=== PATIENT | male | born 1995 | race African-American/Black ===

== ENCOUNTER 2017-11-04 09:38 | Emergency (ER) | payer MEDICAID ==
[2017-11-04] MEDS ORDERED: KETOROLAC TROMETHAMINE INJ/PF 30 MG/1 ML SDV IV ONE (10:31)
[2017-11-04] MEDS ORDERED: CLONIDINE HCL 0.1 MG TABLET PO ONE (10:31)
[2017-11-04] MEDS ORDERED: NORMAL SALINE 500 ML IV ONE (10:32)
[2017-11-04 10:39] LABS: ABSOLUTE BASOPHILS # (AUTO) 0.1 10^3/uL (0.0-0.2); ABSOLUTE EOSINOPHILS # (AUTO) 0.1 10^3/uL (0.0-0.6); ABSOLUTE LYMPHOCYTES (AUTO) 1.6 10^3/uL (0.5-4.7); ABSOLUTE MONOCYTES (AUTO) 0.3 10^3/uL (0.1-1.4); ABSOLUTE NEUT (AUTO) 4.4 10^3/uL (1.7-8.2); BASOPHILS % (AUTO) 0.8 % (0-2); HEMATOCRIT 46.5 % (37.9-51.0); HEMOGLOBIN 15.7 g/dL (13.5-17.0); LYMPHOCYTES % (AUTO) 24.3 % (13-45); MEAN CORPUSCULAR HEMOGLOBIN 27.8 pg (27.0-33.4); MEAN CORPUSCULAR HGB CONC 33.8 g/dL (32.0-36.0); MEAN CORPUSCULAR VOLUME 82 fl (80-97); MONOCYTES % (AUTO) 5.3 % (3-13); PLATELET COUNT 328 10^3/uL (150-450); RED BLOOD COUNT 5.66 10^6/uL (4.35-5.55); SEGMENTED NEUTROPHILS % (AUTO) 68.6 % (42-78); TOTAL CELLS COUNTED % (AUTO) 100 %; WHITE BLOOD COUNT 6.4 10^3/uL (4.0-10.5)
[2017-11-04 10:56] LABS: ANION GAP 14 (5-19); BLOOD UREA NITROGEN 17 mg/dL (7-20); CALCIUM 10.8 mg/dL (8.4-10.2); CARBON DIOXIDE 25 mmol/L (22-30); CHLORIDE 104 mmol/L (98-107); CREATINE KINASE 155 U/L (55-170); GLUCOSE 90 mg/dL (75-110); POTASSIUM 3.9 mmol/L (3.6-5.0); SODIUM 143.3 mmol/L (137-145)
--- NOTE | 2017-11-04 11:48 | ER Document Report ---
ED General - General Chief Complaint: Chest Pain Stated Complaint: CHEST PAIN Time Seen by Provider: 11/04/17 10:31 TRAVEL OUTSIDE OF THE U.S. IN LAST 30 DAYS: No - HPI Patient complains to provider of: Chest discomfort Notes: Patient coming in for evaluation of chest discomfort. Patient was recently seen at a local urgent care and encouraged him to the ER for further evaluation. Patient appeared To Be Hypertensive. Patient Is on Multiple Psychiatric Medications Including Clonidine. Patient States Somewhat Compliance with His Clonidine However Is Very Clear with His Regimen. Patient Denies Any Fever Chills Nausea Vomiting Diarrhea Denies Any Trauma. - Related Data Allergies/Adverse Reactions: latex [Latex] Allergy (Verified 11/04/17 09:41) Past Medical History - Social History Smoking Status: Never Smoker Chew tobacco use (# tins/day): No Frequency of alcohol use: None Drug Abuse: None Family History: Other - This reports he does not know his family medical history Patient has suicidal ideation: No Patient has homicidal ideation: No - Past Medical History Cardiac Medical History: Reports: Hx Hypercholesterolemia, Hx Hypertension Neurological Medical History: Reports: Hx Seizures Renal/ Medical History: Denies: Hx Peritoneal Dialysis GI Medical History: Reports: Hx Gastroesophageal Reflux Disease Psychiatric Medical History: Reports: Hx Attention Deficit Hyperactivity Disorder, Hx Bipolar Disorder Traumatic Medical History: Reports: Hx Traumatic Brain Injury Past Surgical History: Reports: Hx Neurologic Surgery - RUBBER SPLICER shunt - Immunizations Hx Diphtheria, Pertussis, Tetanus Vaccination: - unknown Review of Systems - Review of Systems Constitutional: No symptoms reported EENT: No symptoms reported Cardiovascular: Chest pain Respiratory: No symptoms reported Gastrointestinal: No symptoms reported Genitourinary: No symptoms reported Male Genitourinary: No symptoms reported Musculoskeletal: No symptoms reported Skin: No symptoms reported Hematologic/Lymphatic: No symptoms reported Neurological/Psychological: No symptoms reported -: Yes All other systems reviewed and negative Physical Exam - Vital signs Vitals: Temp Pulse Resp BP Pulse Ox 98.5 F 94 18 136/96 H 99 11/04/17 10:01 11/04/17 10:01 11/04/17 10:01 11/04/17 10:01 11/04/17 10:01 Interpretation: Normal - General General appearance: Appears well, Alert - HEENT Head: Normocephalic, Atraumatic Eyes: Normal Pupils: PERRL - Respiratory Respiratory status: No respiratory distress Chest status: Nontender Breath sounds: Normal Chest palpation: Normal - Cardiovascular Rhythm: Regular Heart sounds: Normal auscultation Murmur: No - Abdominal Inspection: Normal Distension: No distension Bowel sounds: Normal Tenderness: Nontender Organomegaly: No organomegaly - Back Back: Normal, Nontender - Extremities General upper extremity: Normal inspection, Nontender, Normal color, Normal ROM , Normal temperature General lower extremity: Normal inspection, Nontender, Normal color, Normal ROM , Normal temperature, Normal weight bearing. No: Bhavna's sign - Neurological Neuro grossly intact: Yes Cognition: Normal Orientation: AAOx4 [place] Coma Scale Eye Opening: Spontaneous Max Coma Scale Verbal: Oriented [place] Coma Scale Motor: Obeys Commands [place] Coma Scale Total: 15 Speech: Normal Motor strength normal: LUE, RUE, LLE, RLE Sensory: Normal - Psychological Associated symptoms: Normal affect, Normal mood - Skin Skin Temperature: Warm Skin Moisture: Dry Skin Color: Normal Course - Re-evaluation Re-evalutation: 11/04/17 15:02 The patient has atypical chest pain as the patient's chest pain is not suggestive of pulmonary embolus, cardiac ischemia, aortic dissection, or other serious etiology. Given the extremely low risk of these diagnoses further testing and evaluation for these possibilities does not appear to be indicated at this time. The patient has been instructed to return if the symptoms worsen or change in any way. - Vital Signs Vital signs: Temp Pulse Resp BP Pulse Ox 98.5 F 94 13 135/77 H 100 11/04/17 10:01 11/04/17 10:01 11/04/17 12:01 11/04/17 12:01 11/04/17 12:01 - Laboratory Result Diagrams: 11/04/17 10:25 11/04/17 10:25 Laboratory results interpreted by me: 11/04/17 11/04/17 10:25 10:25 RBC 5.66 H Calcium 10.8 H Discharge - Discharge Clinical Impression: Chest discomfort Hypertension Qualifiers: Hypertension type: unspecified Qualified Code(s): I10 - Essential (primary) hypertension Disposition: HOME, SELF-CARE Instructions: Chest Wall Pain ([facility]), Chest Pain of Unclear Cause ([facility]) Additional Instructions: Your laboratory studies not show any signs of significant pathology your EKG is negative. I would highly recommend she follow-up with your primary care physician for further evaluation of her chest discomfort at this time I do not see cardiac ischemia or signs of significant heart pathology. I recommend taking Motrin and Tylenol for your pain. Return to the ER symptoms worsen. Forms: Elevated Blood Pressure
[2017-11-04 12:05] VITALS: BP 135/77
--- NOTE | 2017-11-04 21:22 | EKG REPORT ---
SEVERITY:- NORMAL ECG - SINUS RHYTHM : Confirmed by: Michelle Parra 04-Nov-2017 21:21:18
== END 2017-11-04 12:08 | disposition home or self-care (01) ==
LOC: ER 09:38
DX: R07.9 Chest pain, unspecified (principal); I10 Essential (primary) hypertension; E78.00 Pure hypercholesterolemia, unspecified; Z91.040 Latex allergy status
CPT/HCPCS: 93005; 99285; 96374; 36415; 82550; 85025; 80048; 84484; 93010; J3490; J1885; J7040

== ENCOUNTER 2018-11-21 18:50 | Emergency (ER) | payer MEDICARE, MEDICAID ==
[2018-11-21] MEDS ORDERED: LEVETIRACETAM 1000 MG/NACL-ISO 1,000 MG/100 ML RTUPB IV ONE (19:50)
--- NOTE | 2018-11-21 19:52 | ER Document Report ---
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 He was riding in a cab on the way to eat when the ferryboat operator cable noticed that he had tonic-clonic shaking and some foaming at the mouth. This reportedly lasted for a couple of minutes. Patient states he feels like he "fought a war". He denies headache however, he denies any locations of pain, he just feels tired reportedly. He denies recent fever, recent headaches, vomiting. He states he is supposed to be on Keppra 1000 mg twice a day, he does have a follow-up here locally now established but has not made it yet. He states his last confirmed seizure was last June. - Related Data Allergies/Adverse Reactions: latex [Latex] Allergy (Verified 11/04/17 09:41) Past Medical History - General Information source: Patient - Social History Smoking Status: Never Smoker Frequency of alcohol use: Occasional Drug Abuse: None Lives with: Family Family History: Other - This reports he does not know his family medical history Patient has suicidal ideation: No Patient has homicidal ideation: No - Past Medical History Cardiac Medical History: Reports: Hx Hypercholesterolemia, Hx Hypertension Neurological Medical History: Reports: Hx Seizures Renal/ Medical History: Denies: Hx Peritoneal Dialysis GI Medical History: Reports: Hx Gastroesophageal Reflux Disease Psychiatric Medical History: Reports: Hx Attention Deficit Hyperactivity Disorder, Hx Bipolar Disorder Traumatic Medical History: Reports: Hx Traumatic Brain Injury Past Surgical History: Reports: Hx Neurologic Surgery - 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 - Immunizations Immunizations up to date: Yes Hx Diphtheria, Pertussis, Tetanus Vaccination: Yes - unknown Review of Systems - Review of Systems Constitutional: No symptoms reported EENT: No symptoms reported Cardiovascular: No symptoms reported Respiratory: No symptoms reported Gastrointestinal: No symptoms reported Genitourinary: No symptoms reported Male Genitourinary: No symptoms reported Musculoskeletal: No symptoms reported Skin: No symptoms reported Hematologic/Lymphatic: No symptoms reported Neurological/Psychological: See HPI Physical Exam - Vital signs Vitals: Pulse Ox 99 11/21/18 18:56 - Notes Notes: GENERAL: Alert, interacts well. No acute distress. HEAD: Normocephalic, atraumatic. EYES: Pupils equal, round, and reactive to light. Extraocular movements intact. ENT: Oral mucosa moist, tongue midline. Oropharynx unremarkable. Airway patent. Nares patent, no nasal septal hematoma, TM's intact. NECK: Full range of motion. Supple. Trachea midline. LUNGS: Clear to auscultation bilaterally, no wheezes, rales, or rhonchi. No respiratory distress. HEART: Regular rate and rhythm. No murmur ABDOMEN: Soft, non-tender. Non-distended. Bowel sounds present in all 4 quadrants. GENITOURINARY: Deferred EXTREMITIES: Moves all 4 extremities spontaneously. No edema, normal radial and dorsalis pedis pulses bilaterally. No cyanosis. BACK: no cervical, thoracic, lumbar midline tenderness. No saddle anesthesia, normal distal neurovascular exam. NEUROLOGICAL: Alert and oriented x3. Normal speech. [cranial nerves II through XII grossly intact]. PSYCH: Normal affect, normal mood. SKIN: Warm, dry, normal turgor. No rashes or lesions noted. Course - Re-evaluation Re-evalutation: On my evaluation patient has no complaints. He is neurologically intact, oriented to person and place, cannot recall the events at the time of the seizure. I do suspect he did have a seizure, he was given 1000 mg of Keppra bolus IV. Chemistry unremarkable, magnesium unremarkable, alcohol negative. Vital signs unremarkable. Based on his lack of headache, vomiting, and his well appearance I have low suspicion of 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 abnormality. I did discuss this with patient, he states he definitely does not want any imaging in regards to this and states he is "fine" except for the seizure. I do agree based on his evaluation. After monitoring patient reevaluated, again no current symptoms. No repeat seizures. Patient asking to leave. Patient provided with Keppra prescription, he states he does have a follow-up with [facility] this week as well. I discussed return precautions with patient in detail. Patient states understanding and agreement. Stable at time of discharge. - Vital Signs Vital signs: Temp Pulse Resp BP Pulse Ox 98.4 F 13 126/80 H 99 11/21/18 20:50 11/21/18 20:50 11/21/18 20:50 11/21/18 20:50 - Laboratory Result Diagrams: 11/21/18 19:12 Discharge - Discharge Clinical Impression: Seizure, Seizure disorder Disposition: HOME, SELF-CARE Additional Instructions: Begin your Keppra medication again as prescribed at your recommended dose. Please be seen in close follow-up for additional monitoring and management of your seizure disorder. Return if you worsen including severe headache, fever, continued seizures, or any other concerning or worsening symptoms. Prescriptions: Levetiracetam [Keppra] 1,000 mg PO BID #60 tablet
[2018-11-21 20:09] LABS: ALCOHOL < 10 mg/dL (NONE DETECTED); ANION GAP 9 (5-19); BLOOD UREA NITROGEN 10 mg/dL (7-20); CALCIUM 10.1 mg/dL (8.4-10.2); CARBON DIOXIDE 30 mmol/L (22-30); CHLORIDE 104 mmol/L (98-107); GLUCOSE 87 mg/dL (75-110); POTASSIUM 4.3 mmol/L (3.6-5.0); SODIUM 143.1 mmol/L (137-145)
[2018-11-21 20:52] VITALS: BP 126/80
--- NOTE | 2018-11-21 22:27 | EKG REPORT ---
SEVERITY:- BORDERLINE ECG - SINUS RHYTHM ANTERIOR ST ELEVATION, PROBABLY DUE TO [facility]H : Confirmed by: Bryce Mnosivais MD 21-Nov-2018 22:27:22
== END 2018-11-21 20:57 | disposition home or self-care (01) ==
LOC: ER 18:50
DX: G40.919 Epilepsy, unspecified, intractable, without status epilepticus (principal); T42.6X6A Underdosing of other antiepileptic and sedative-hypnotic drugs, initial encounter; Z91.128 Patient's intentional underdosing of medication regimen for other reason; Z91.14 Patient's other noncompliance with medication regimen; Z91.040 Latex allergy status; I10 Essential (primary) hypertension; Z98.2 Presence of cerebrospinal fluid drainage device
CPT/HCPCS: 93005; 99284; 96374; 36415; 80307; 83735; 80048; 93010; J1953

== ENCOUNTER 2019-05-16 16:43 | Emergency (ER) | payer MEDICARE, OTHER, MEDICAID ==
[2019-05-16] MEDS ORDERED: LEVETIRACETAM 1000 MG/NACL-ISO 1,000 MG/100 ML RTUPB IV ONE (17:24)
[2019-05-16 18:55] LABS: ABSOLUTE LYMPHOCYTES (AUTO) 0.9 10^3/uL (0.5-4.7); ABSOLUTE MONOCYTES (AUTO) 0.6 10^3/uL (0.1-1.4); ABSOLUTE NEUT (AUTO) 9.8 10^3/uL (1.7-8.2); BASOPHILS % (AUTO) 0.3 % (0-2); HEMATOCRIT 42.2 % (37.9-51.0); HEMOGLOBIN 14.1 g/dL (13.5-17.0); LYMPHOCYTES % (AUTO) 8.1 % (13-45); MEAN CORPUSCULAR HEMOGLOBIN 27.5 pg (27.0-33.4); MEAN CORPUSCULAR HGB CONC 33.3 g/dL (32.0-36.0); MEAN CORPUSCULAR VOLUME 83 fl (80-97); PLATELET COUNT 277 10^3/uL (150-450); RED BLOOD COUNT 5.12 10^6/uL (4.35-5.55); RED CELL DISTRIBUTION WIDTH 13.8 % (11.5-14.0); SEGMENTED NEUTROPHILS % (AUTO) 86.6 % (42-78); TOTAL CELLS COUNTED % (AUTO) 100 %; WHITE BLOOD COUNT 11.4 10^3/uL (4.0-10.5)
[2019-05-16 19:15] LABS: ALBUMIN 4.5 g/dL (3.5-5.0); ALKALINE PHOSPHATASE 85 U/L (38-126); ANION GAP 13 (5-19); ASPARTATE AMINO TRANSFERASE 35 U/L (17-59); BILIRUBIN,DIRECT 0.3 mg/dL (0.0-0.4); BILIRUBIN,TOTAL 0.4 mg/dL (0.2-1.3); BLOOD UREA NITROGEN 16 mg/dL (7-20); CALCIUM 9.4 mg/dL (8.4-10.2); CARBON DIOXIDE 24 mmol/L (22-30); CHLORIDE 102 mmol/L (98-107); GLUCOSE 79 mg/dL (75-110); POTASSIUM 3.9 mmol/L (3.6-5.0); TOTAL PROTEIN 7.6 g/dL (6.3-8.2)
[2019-05-16 19:22] LABS: ALCOHOL < 10 mg/dL (NONE DETECTED)
--- NOTE | 2019-05-16 19:25 | RADIOLOGY REPORT (SQ) ---
EXAM DESCRIPTION: CT HEAD WITHOUT COMPLETED DATE/TIME: 05/16/2019 6:44 pm REASON FOR STUDY: andree, loc COMPARISON: None. TECHNIQUE: Axial images acquired through the brain without intravenous contrast. Images reviewed wi th bone, brain and subdural windows. Additional sagittal and coronal reconstructions were generated. Images stored on PACS. All CT scanners at this facility use dose modulation, iterative reconstruction, and/or weight based d osing when appropriate to reduce radiation dose to as low as reasonably achievable (ALARA). [facility]: Dose Right [facility]: CareDose [facility]: Dose Right [facility]: Teradose 4D [facility]: [employer] RADIATION DOSE: CT Rad equipment meets quality standard of care and radiation dose reduction techniq ues were employed. CTDIvol: 48.7 mGy. DLP: 1126 mGy-cm. mGy. LIMITATIONS: None. FINDINGS: VENTRICLES: Normal in size and contour. A ventriculoperitoneal shunt is present on the ri ght. CEREBRUM: No masses. No hemorrhage. No midline shift. No evidence for acute infarction. There is an area of encephalomalacia in the superior aspect of the right lobe of the cerebellum. There are ex tensive calcifications in the right subdural space. Normal miner/white matter differentiation. No area s of low density in the white matter. CEREBELLUM: No masses. No hemorrhage. No alteration of density. No evidence for acute infarction. EXTRAAXIAL SPACES: No fluid collections. No masses. ORBITS AND GLOBE: No intra- or extraconal masses. Normal contour of globe without masses. CALVARIUM: No fracture. PARANASAL SINUSES: No fluid or mucosal thickening. SOFT TISSUES: No mass or hematoma. OTHER: No other significant finding. IMPRESSION: There are dense calcifications that appear to be in the subdural space on the right, pos sibly suggesting prior subdural hematoma. A ventriculoperitoneal shunt is present. The ventricles a re normal in size. There is an area of decreased attenuation in the superior aspect of the right lob e of the cerebellum. Is there history of prior infarction? EVIDENCE OF ACUTE STROKE: NO. COMMENT: Quality ID # [id number]: Final reports with documentation of one or more dose reduction techniques (e.g., Automated exposure control, adjustment of the mA and/or kV according to patient size, use of iterative reconstruction technique) TECHNICAL DOCUMENTATION: JOB ID: [id number] [employer]- All Rights Reserved Reading location - IP/workstation name: [email or web address]
[2019-05-16] MEDS ORDERED: MORPHINE SULFATE 10 MG/ML INJ IV ONE (20:35)
--- NOTE | 2019-05-16 20:45 | ER Document Report ---
ED General - General Chief Complaint: Seizure Stated Complaint: POSSIBLE SEIZURE Time Seen by Provider: 05/16/19 16:56 Primary Care Provider: TOMMY GIL MD [Primary Care Provider] - Follow up as needed Mode of Arrival: Medic Information source: Patient TRAVEL OUTSIDE OF THE [place] IN LAST 30 DAYS: No - HPI Notes: Patient is brought in by EMS after a seizure. Patient was apparently getting off the bus when he had tonic-clonic activity. Patient does have a known history of seizures. He states he has been taking his seizure medications. He states he has not missed any doses. He states he is otherwise been feeling well lately. He states he last had a seizure approximate 1 week ago and does not remember when the last seizure was before that one. He states his shunt is known to be obstructed and he is scheduled to have surgery this coming Thursday for it. Patient states he does currently have a throbbing moderate to severe headache. It is diffuse. It does not radiate. It is worse with exertion or movement and better with rest. - Related Data Allergies/Adverse Reactions: latex [Latex] Allergy (Verified 11/04/17 09:41) Past Medical History - General Information source: Patient - Social History Smoking Status: Never Smoker Chew tobacco use (# tins/day): No Frequency of alcohol use: None Drug Abuse: None Family History: Reviewed & Not Pertinent, Other - This reports he does not know his family medical history Patient has suicidal ideation: No Patient has homicidal ideation: No - Past Medical History Cardiac Medical History: Reports: Hx Hypercholesterolemia, Hx Hypertension Neurological Medical History: Reports: Hx Seizures Renal/ Medical History: Denies: Hx Peritoneal Dialysis GI Medical History: Reports: Hx Gastroesophageal Reflux Disease Psychiatric Medical History: Reports: Hx Attention Deficit Hyperactivity Disorder, Hx Bipolar Disorder Traumatic Medical History: Reports: Hx Traumatic Brain Injury Past Surgical History: Reports: Hx Neurologic Surgery - TOUCHER UP shunt - Immunizations Immunizations up to date: Yes Hx Diphtheria, Pertussis, Tetanus Vaccination: Yes - unknown Review of Systems - Review of Systems Constitutional: Malaise. denies: Chills, Fever Cardiovascular: denies: Chest pain, Dyspnea Respiratory: denies: Cough, Short of breath -: Yes All other systems reviewed and negative Physical Exam - Vital signs Vitals: Resp Pulse Ox 12 97 05/16/19 16:58 05/16/19 16:58 Interpretation: Normal - General General appearance: Appears well, Alert - HEENT Head: Normocephalic, Atraumatic Eyes: Normal Pupils: PERRL - Respiratory Respiratory status: No respiratory distress Chest status: Nontender Breath sounds: Normal Chest palpation: Normal - Cardiovascular Rhythm: Regular Heart sounds: Normal auscultation Murmur: No - Abdominal Inspection: Normal Distension: No distension Bowel sounds: Normal Tenderness: Nontender Organomegaly: No organomegaly - Back Back: Normal, Nontender - Extremities General upper extremity: Normal inspection, Nontender, Normal color, Normal ROM, Normal temperature General lower extremity: Normal inspection, Nontender, Normal color, Normal ROM, Normal temperature, Normal weight bearing. No: Bhavna's sign - Neurological Neuro grossly intact: Yes Cognition: Normal Orientation: AAOx4 Max Coma Scale Eye Opening: Spontaneous Max Coma Scale Verbal: Oriented [place] Coma Scale Motor: Obeys Commands Max Coma Scale Total: 15 Speech: Normal Motor strength normal: LUE, RUE, LLE, RLE Sensory: Normal - Psychological Associated symptoms: Normal affect, Normal mood - Skin Skin Temperature: Warm Skin Moisture: Dry Skin Color: Normal Course - Re-evaluation Re-evalutation: 05/16/19 20:[address] is unremarkable. Patient has been stable and without further seizure activity. He was loaded with Keppra. Laboratories are unremarkable. There is no bed at [facility] at this time. Is also no bed at [facility]. Since patient is scheduled to have surgery at [facility] in 4 days it seems most appropriate to go there. I did contact the hospitalist here but he states he does not feel comfortable admitting the patient. Patient will remain in the ED until a bed can be procured at [facility] or [facility]. 05/16/19 22:25 Patient is currently stable and sleeping in the room. I called and spoke with [facility]. At this time they state they will not accept the patient because they have no beds. They asked us to call back again tomorrow to see if they have a bed. I do not feel that the patient is safe for discharge because he has a known obstructive shunt. He has had 2 seizures in the last week when he normally has seizures only several times a year. In addition he is scheduled for surgery this Thursday at [facility]. He also is currently living alone as his mother is out of town on vacation. - Vital Signs Vital signs: Temp Pulse Resp BP Pulse Ox 99.6 F 14 139/72 H 100 05/16/19 19:55 05/16/19 20:45 05/16/19 20:45 05/16/19 20:45 - Laboratory Result Diagrams: 05/16/19 18:06 05/16/19 18:06 Laboratory results interpreted by me: 05/16/19 05/16/19 18:06 20:53 WBC 11.4 H Seg Neutrophils % 86.6 H Lymphocytes % 8.1 L Absolute Neutrophils 9.8 H Urine Ketones 20 H - Diagnostic Test Radiology reviewed: Image reviewed, Reports reviewed Discharge - Discharge Clinical Impression: Seizure Condition: Stable Disposition: [facility] Referrals: TOMMY GIL MD [Primary Care Provider] - Follow up as needed
[2019-05-16 21:44] LABS: AMORPHOUS SEDIMENT,URINE 1+ /HPF; APPEARANCE,URINE TURBID; BILIRUBIN,URINE NEGATIVE (NEGATIVE); COLOR,URINE YELLOW; GLUCOSE, URINE NEGATIVE (NEGATIVE); KETONES,URINE 20 mg/dL (NEGATIVE); LEUKOCYTE ESTERASE,URINE NEGATIVE (NEGATIVE); NITRITE,URINE NEGATIVE (NEGATIVE); PROTEIN,URINE NEGATIVE (NEGATIVE); URINE SPECIFIC GRAVITY 1.024; UROBILINOGEN,URINE NEGATIVE mg/dL (<2.0)
[2019-05-16 21:51] LABS: URINE AMPHETAMINES SCREEN NEGATIVE; URINE BARBITURATES SCREEN NEGATIVE; URINE BENZODIAZEPINES SCREEN UNCONFIRMED POSITIVE; URINE COCAINE SCREEN NEGATIVE; URINE MARIJUANA (THC) SCREEN NEGATIVE; URINE METHADONE SCREEN NEGATIVE; URINE PHENCYCLIDINE SCREEN NEGATIVE
[2019-05-16] MEDS ORDERED: LEVETIRACETAM 500 MG TABLET PO ONE (22:24)
[2019-05-17] MEDS ORDERED: OXCARBAZEPINE 150 MG TABLET PO ONE ×2 (10:45→14:00)
--- NOTE | 2019-05-17 10:56 | ER Document Report ---
Doctor's Note Notes: 05/17/19 10:54 Patient seen and examined. In short this is a 23-year-old male with a CONSIGNEE shunt as well as a history of seizures who is had an increasing amount of seizures lately. His shunt is noted to be clogged, he is supposed to have surgery on Thursday at [facility]. He has had more seizures so he is kept here awaiting a bed. Patient was loaded with Keppra yesterday. He was unsure what seizure medication he was on. I was able to discern it was Trileptal. Patient denies any pain or complaints. He said no seizure activity. He is eating and drinking. Anxious to be transferred for further care. On physical exam this is a 20-year-old male who appears stated age no acute distress. Pupils are equal round reactive to light. Heart is regular rate and rhythm, lungs clear to station bilaterally. Patient is awake and alert, interactive with examiner, no clear focal neurological deficits. Assessment: 23-year-old male with seizure disorder, increased seizures, CONSIGNEE shunt malfunction. Awaiting transfer to either [facility] or [facility]. We will continue to seek out an available bed. Patient given first dose of Trileptal here, will continue to monitor. 05/17/19 12:37 I was notified by nursing that [facility] once again told us they had absolutely no beds and would not accept the patient. [facility] will not accept the patient as they do not have neurosurgery for intervention. We then contacted violent. I spoke with Dr. Carlos Gallego, neurosurgeon at [facility]. He happily excepted the patient to a neuro ICU bed. I went and evaluated the patient, he is currently stable for transfer. 05/17/19 16:09 Transport is here. He had some relief of his headache with the medication he received earlier. Patient is medically stable for transport.
[2019-05-17] MEDS ORDERED: MORPHINE SULFATE 10 MG/ML INJ IV ONE (12:50)
[2019-05-17] MEDS ORDERED: NORMAL SALINE 500 ML IV ONE (12:50)
[2019-05-17 16:12] VITALS: BP 146/74
[2019-05-17] MEDS ORDERED: OXCARBAZEPINE 150 MG TABLET PO SCH (22:00)
== END 2019-05-17 16:12 | disposition short-term general hospital (02) ==
LOC: ER 16:43
DX: G40.909 Epilepsy, unspecified, not intractable, without status epilepticus (principal); E78.00 Pure hypercholesterolemia, unspecified; I10 Essential (primary) hypertension; Z87.820 Personal history of traumatic brain injury; Z98.2 Presence of cerebrospinal fluid drainage device; Z91.040 Latex allergy status
CPT/HCPCS: 36415; 80307 ×2; 83735; 85025; 80053; 81001; 70450; J2270 ×2; A9270 ×2; J7040; J1953; 96361; 96365; 96375; 96376; 99285